=== PATIENT | male | born 1985 | race African-American/Black ===

== ENCOUNTER 2019-04-23 02:55 | Emergency (ER) | payer SELFPAY ==
[~2019-04-23] VITALS: Ht 190.5 cm; Wt 55.6 kg
[2019-04-23 02:58] VITALS: BP 126/7
[2019-04-23] MEDS ORDERED: ALBU8.5H8 IH (03:09)
== END 2019-04-23 03:18 | disposition home or self-care (01) ==
LOC: ER 02:56
DX: J45.909 Unspecified asthma, uncomplicated (principal); Z76.0 Encounter for issue of repeat prescription; Z79.899 Other long term (current) drug therapy; Z59.0 Homelessness
CPT/HCPCS: 99283